=== PATIENT | female | born 1990 | race American Indian/Alaskan Native ===

== ENCOUNTER 2020-02-09 04:52 | Inpatient (IN) | payer OTHER ==
[2020-02-09] MEDS ORDERED: LACTATED RINGERS 1,000 ML ONE (05:04)
[2020-02-09] MEDS ORDERED: OXYTOCIN 20 UNIT/1000ML DRIP 40,000 MILLIUNITS/2,000 ML BAG IV ONE (05:15)
[2020-02-09] MEDS ORDERED: LIDOCAINE (2%) 20 MG/1 ML VIAL 20 ML MDV INFILTRATI ONE ×2 (05:22→05:47)
[2020-02-09] MEDS ORDERED: TERBUTALINE 1 MG/1 ML INJ SUB-Q PRN (05:47)
[2020-02-09] MEDS ORDERED: TERBUTALINE 1 MG/1 ML INJ IVP PRN (05:47)
[2020-02-09] MEDS ORDERED: ePHEDrine SULFATE 50 MG/1 ML INJ IV PRN (05:47)
[2020-02-09] MEDS ORDERED: MINERAL OIL 30 ML ORAL LIQD PO PRN (05:47)
[2020-02-09] MEDS ORDERED: LANOLIN/ZINC/DIMETHICONE (LANSINOH) 7 GM TP PRN (05:53)
[2020-02-09] MEDS ORDERED: PROMETHAZINE 25 MG RECT SUPP PR PRN (05:53)
[2020-02-09] MEDS ORDERED: PROMETHAZINE 25 MG TAB PO PRN (05:53)
[2020-02-09] MEDS ORDERED: ACETAMINOPHEN 325 MG TAB PO PRN (05:53)
[2020-02-09] MEDS ORDERED: ONDANSETRON 4 MG/2 ML INJ IV PRN (05:53)
[2020-02-09] MEDS ORDERED: MAGNESIUM HYDROXIDE (MOM) ORAL LIQD UDC PO PRN (05:53)
[2020-02-09] MEDS ORDERED: diphenhydrAMINE 25 MG CAP PO PRN (05:53)
--- NOTE | 2020-02-09 05:57 | Procedure Note ---
OB Delivery Note - Delivery Date of Delivery: 02/09/20 Surgeon: ANT WELLS Estimated blood loss: 200cc - Vaginal Delivery presentation: vertex Delivery position: OA Intrapartum events: meconium, foul smelling fluid, precipitous labor- <3hr Delivery induction: none Delivery monitor: external FHT, external uterine Route of delivery: Delivery placenta: spontaneous Episiotomy: none Delivery laceration: 2nd degree (labial bilaterally) Delivery repair: vicryl (3-0) Anesthesia: local Delivery comments: Delivery as above was not complicated. Infant placed on [place] warmer after delivery to waiting brando nurse. There was no shoulder dystocia or nuchal cord noted. Pt had lacerations as noted and repaired in usual fashion. noted to have temp and extra digits bilaterally. Otherwise mother and infant stable in LDR. - A at 1 minute: 8 at 5 minutes: 9 Infant Gender: Male (8lbs 1oz)
--- NOTE | 2020-02-09 05:57 | History and Physical Report ---
History of Present Illness Date of examination: 02/09/20 Date of admission: 02/09/20 04:57 Chief complaint: contractions History of present illness: Pt presents in active labor. From time of admission to delivery was about an hour. Pt states she had pnc at [facility] [place] and edc was . Pt reports no complications this and states she does not know what her GBS status is. 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 Family/Genetic History: none Social history: no significant social history - Obstetrical History Expected Date of Delivery: 02/04/20 Actual Gestation: 40 Week(s) 5 Day(s) : 5 Para: 4 Number of Living Children: 4 Medications and Allergies Allergies Allergy/AdvReac Type Severity Reaction Status Date / Time No Known Allergies Allergy Unverified 02/09/20 05:22 Active Meds: Active Medications Acetaminophen (Tylenol) 650 mg PO Q4H PRN PRN Reason: Pain MILD(1-3)/Fever >100.5/THAYER Bisacodyl (Dulcolax) 10 mg KS BID PRN PRN Reason: Constipation Diphenhydramine HCl (Benadryl) 25 mg PO Q6H PRN PRN Reason: Itching Ephedrine Sulfate (Ephedrine Sulfate) 10 mg IV Q2M PRN PRN Reason: Hypotension Oxytocin/Sodium Chloride (Pitocin/Ns 20 Unit/1000ml Drip) 20 units in 1,000 mls @ 125 mls/hr IV DIRECT VENESSA Oxytocin/Sodium Chloride (Pitocin/Ns 30 Unit/500ml) 30 units in 500 mls @ 1 mls/hr IV TITR VENESSA; Protocol Lactated Ringer's (Lactated Ringers) 1,000 mls @ 125 mls/hr IV DIRECT VENESSA Ibuprofen (Ibuprofen) 600 mg PO Q6H VENESSA Magnesium Hydroxide (Milk Of Magnesia) 30 ml PO HS PRN PRN Reason: Constipation Mineral Oil (Mineral Oil) 30 ml PO QHS PRN PRN Reason: Constipation Multi-Ingredient Ointment (Lansinoh) 1 applic TP PRN PRN PRN Reason: Sore Nipples Ondansetron HCl (Zofran) 4 mg IV Q8H PRN PRN Reason: Nausea And Vomiting Promethazine HCl (Phenergan) 25 mg KS Q6H PRN PRN Reason: Nausea And Vomiting Promethazine HCl (Phenergan) 25 mg PO Q6H PRN PRN Reason: Nausea And Vomiting Sodium Chloride (Sodium Chloride Flush Syringe 10 Ml) 10 ml IV PRN NR Terbutaline Sulfate (Brethine) 0.25 mg SUB-Q ONCE PRN PRN Reason: Hyperstimulation/Hypertonicity Terbutaline Sulfate (Brethine) 0.25 mg IVP ONCE PRN PRN Reason: Hyperstimulation/Hypertonicity Witch Kadi/Glycerin (Tucks Pad) 1 each TP PRN PRN PRN Reason: Hemorrhoid/cleansing/soothing Review of Systems All systems: negative - Vital Signs Vital signs: Vital Signs Pulse BP 82 120/67 02/09/20 05:03 02/09/20 05:03 Temp Pulse Resp BP Pulse Ox 82 120/67 02/09/20 05:03 02/09/20 05:03 - Physical Exam Cardiovascular: Normal S1, Normal S2 Lungs: Positive: Clear to auscultation, Normal air movement Abdomen: Positive: normal appearance, soft Genitourinary (Female): Positive: normal external genitalia, normal perenium, other (no lesion) Vulva: both: normal Extremities: Positive: normal. Negative: tenderness, edema Deep Tendon Reflex Grade: Normal +2 - Obstetrical FHR: auscultation normal Cervical Dilatation: 10 (+mec noted with AROM as well as foul odor) Cervical Effacement Percentage: 100 Uterine Contraction Pattern: Regular Results All other labs normal. Assessment and Plan - Patient Problems (1) 40 weeks gestation of Current Visit: Yes Status: Acute (2) Active labor at term Current Visit: Yes Status: Acute (3) Meconium in amniotic fluid Current Visit: Yes Status: Acute (4) Rupture of membranes with foul smelling amniotic fluid Current Visit: Yes Status: Acute
[2020-02-09] MEDS: OXYTOCIN 20 UNIT/1000ML DRIP 20 UNITS/1,000 ML BAG IV SCH ×2 (06:00→07:52)
[2020-02-09] MEDS ORDERED: OXYTOCIN DRIP 30 UNITS/500 ML BAG IV SCH (06:00)
[2020-02-09] MEDS ORDERED: LACTATED RINGERS 1,000 ML IV SCH (06:00)
[2020-02-09 06:31] LABS: Hematocrit 31.8 % (30.3-42.9); Hemoglobin 10.1 gm/dl (10.1-14.3); Mean Corpuscular HGB Conc 32 % (30-34); Mean Corpuscular Volume 80 fl (79-97); Platelet Count 154 K/mm3 (140-440); Red Blood Count 3.97 M/mm3 (3.65-5.03); Red Cell Distribution Width 16.9 % (13.2-15.2)
[2020-02-09] MEDS: WITCH HAZEL/ GLYCERIN PAD TP PRN (10:12)
[2020-02-09 10:47] LABS: Hematocrit 31.3 % (30.3-42.9); Hemoglobin 9.6 gm/dl (10.1-14.3)
[2020-02-09] MEDS: IBUPROFEN 600 MG TAB PO SCH ×3 (13:30→23:55)
[2020-02-10] MEDS ORDERED: OXYTOCIN 20 UNIT/1000ML DRIP 20,000 MILLIUNITS/1,000 ML BAG IV ONE (05:01)
[2020-02-10] MEDS: IBUPROFEN 600 MG TAB PO SCH ×2 (06:13→16:08)
--- NOTE | 2020-02-10 08:41 | Discharge Summary ---
Providers - Providers Date of Admission: 02/09/20 04:57 Date of discharge: 02/10/20 (Pt desires to go home.) Attending physician: ANT WELLS Primary care physician: ELECTROMEDICAL EQUIPMENT TECHNICIAN Hospitalization Reason for admission: active labor Delivery: Episiotomy: none Laceration: none Other procedures: none complications: none Discharge diagnosis: IUP at term delivered baby: male Hospital course: S: I'm doing well. Passing flatus, voiding, and ambulating okay. BC: Undecided. O: VSS. Adequate I&O's. Fundus firm, minimal bleeding noted. A: 29 y.o. s/p @ 40+ wks, stable for discharge home. P: Discharge home with instructions. To schedule visit in 4 weeks. To schedule circumcision appointment in 1 week. Condition at discharge: Good Disposition: DC-01 TO HOME OR SELFCARE Plan - Provider Discharge Summary Activity: routine, no sex for 6 weeks, no heavy lifting 4 weeks, no strenuous exercise Diet: routine Instructions: routine Additional instructions: [] Smoking cessation referral if applicable(refer to patient education folder for contact #) [] Refer to [facility] Book[facility] Call your doctor immediately for: * Fever > 100.5 * Heavy vaginal bleeding ( >1 pad per hour) * Severe persistent headache * Shortness of breath * Reddened, hot, painful area to leg or breast * Drainage or odor from incision. * Keep incision clean and dry at all times and follow doctor's instructions regarding bathing/showering - Follow up plan Follow up: PRIMARY CARE, [Primary Care Provider] - 7 Days SARAH APARICIO CNM [Advanced Practice Nurse] - 7 Days (Congratulations!! Please schedule a circumcision appointment with our office in 1 week. Please schedule a visit in 4 weeks. You have been prescribed EMLA cream for your son's circumcision appointment. Please do not use this cream at home but bring it with you to the circumcision appointment. If you have any questions or concerns, please do not hesitate to call our office. [address] [id number] )
[2020-02-11] MEDS: IBUPROFEN 600 MG TAB PO SCH ×2 (00:08→05:53)
--- NOTE | 2020-02-11 10:30 | Event Note ---
Date: 02/11/20 (Pt has very strong desire to go home.) Pt has a very strong desire to go home. States that she needs to get home to her children. States that "nobody can take care of my kids like I do". Also states that she is having some pain from her laceration. Will give her a dose of Tylenol 1000mg and 800mg of Motrin now for pain. Rx for 800mg on chart. Fundus firm, VSS, adequate I&O's. Will reassess pain before discharge home.
[2020-02-11] MEDS ORDERED: IBUPROFEN 800 MG TAB PO PRN (11:00)
[2020-02-11] MEDS ORDERED: ACETAMINOPHEN 500 MG TAB PO PRN (11:00)
[2020-02-11] MEDS ORDERED: BENZOCAINE/MENTHOL 20/0.5% TOP SPRAY 56 GM TP PRN (11:48)
[2020-02-11 11:54] VITALS: BP 134/55
[2020-02-11] MEDS: WITCH HAZEL/ GLYCERIN PAD TP PRN (12:04)
--- NOTE | 2020-02-11 15:27 | Event Note ---
Date: 02/11/20 (Pt felt better when discahrged home.) Went to go to check on patient and she had been discharged home. RN states that patient stated that she was ready to go and yelling at her family members to bring her car seat. Her pain was much better.
== END 2020-02-11 14:00 | disposition home or self-care (01) | DRG 775 ==
LOC: TRG 04:52 → LD 04:57 → OB 08:17
PROVIDERS: ADMIT Obstetrics & Gynecology; ATTEND Obstetrics & Gynecology
PROC: 10E0XZZ Delivery of Products of Conception, External Approach (ICD-10-PCS; principal; 2020-02-09)
PROC: 0KQM0ZZ Repair Perineum Muscle, Open Approach (ICD-10-PCS; 2020-02-09)
DX: O62.3 Precipitate labor (principal); O77.0 Labor and delivery complicated by meconium in amniotic fluid; O70.1 Second degree perineal laceration during delivery; Z3A.40 40 weeks gestation of pregnancy; Z37.0 Single live birth
CPT/HCPCS: 36415; 85014; 85018; 85027; 86850; 86900; 86901; 87806; 88307; G0378; A6250; J2590; J7120